=== PATIENT | male | born 1985 | race Caucasian/White ===

== ENCOUNTER 2016-12-11 14:48 | Inpatient (IN) | payer BC ==
--- NOTE | ~2016-12-11 | CN ---
Consultation Report [facility] [address] [place]. [address] NAME: ARELIS MACK : 83 STATUS : ADM IN PAT#: [id number] AGE: 31 ADM/REG DATE : 12/11/16 MR#: [id number] REPORT SERV DATE: 12/13/16 DICTATED BY: DATE: REPORT STATUS : Draft TRANSCRIBED BY: MODNas DATE: 12/13/16 CONSULTATION DATE OF CONSULTATION: 12/12/2016 REASON FOR CONSULTATION: Diabetes management. HISTORY OF PRESENT ILLNESS: The patient was admitted under the care of Dr. Haynes for acute STEMI anterior W[place]. The patient has uncontrolled diabetes with blood sugars in 200s to 300s. He takes oral agents at home including metformin and Glyxambi. Now, the patient reports he does not check his blood sugar on a regular basis and he reports a poor diet at this time including fast food. He also reports having peripheral neuropathy for which he takes gabapentin at home. This time, he denies symptoms of hyperglycemia including increased thirst, polyuria, and polydipsia. PAST MEDICAL HISTORY: Includes hypertension, diabetes mellitus type 2, kidney stones, gastroesophageal reflux disease, and peripheral neuropathy. PAST SURGICAL HISTORY: Includes lithotripsy. SOCIAL HISTORY: The patient reports prior tobacco use. He quit one year ago. He smoked half a pack per day for one year. Denies EtOH use. Denies illicit drug use. 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 He is with four children. FAMILY HISTORY: His mother had an W[place] in her 50s. Father had pacemaker, although he does not know the reason why. He thinks it may be some type of "arrhythmia." The patient does not have any siblings. ALLERGIES: INCLUDE PENICILLIN AND CLARITIN. MEDICATIONS: Include aspirin 81 mg p.o. daily, Lipitor 40 mg p.o. daily, Coreg 6.25 mg p.o. b.i.d., gabapentin 300 mg p.o. b.i.d., losartan 100 mg p.o. daily, Protonix 40 mg p.o. daily, insulin sliding scale level 2, Levemir 10 units subcu daily, and Brilinta 90 mg p.o. b.i.d. REVIEW OF SYSTEMS: A 10-point review of systems was performed. All pertinent positives mentioned above, otherwise negative. PHYSICAL EXAMINATION: VITAL SIGNS: Temperature 98.5, pulse 99, respiratory rate 18, O2 saturation 96% on room air, and blood pressure 112/71. GENERAL: The patient is a well-appearing, well-nourished with appropriate affect. NEUROLOGIC: Alert and oriented x4. He follows commands. Cranial nerves 2 through 12 Consultation Report [facility] [id number] [place]. [address] NAME: ARELIS MACK : 83 STATUS : ADM IN PAT#: [id number] AGE: 31 ADM/REG DATE : 12/11/16 MR#: [id number] REPORT SERV DATE: 12/13/16 DICTATED BY: DATE: REPORT STATUS : Draft TRANSCRIBED BY: MODL DATE: 12/13/16 grossly intact. CARDIOVASCULAR: S1 and S2 present. No murmurs, rubs, or gallops noted. PMI was nondisplaced. Regular rhythm. PULMONARY: Lungs are clear throughout lung gould. The patient has normal respiratory effort. ABDOMEN: Soft, nontender. Active bowel sounds. No reports of diarrhea or constipation. No organomegaly noted. EXTREMITIES: Edema is absent. Distal pulses are present. HOSPITAL COURSE/PROBLEM LIST: 1. Diabetes mellitus type 2, uncontrolled. Blood sugars have ranged from 216 to 330. Check hemoglobin A1c. Add Levemir to his regimen as well as increase sliding scale from level 1 to level 2. Consult chemical educator for diet recommendations as well as regularly monitoring blood sugars and possibly insulin administration if the patient requires this after discharge. 2. Acute myocardial infarction, anterior. This is managed by the primary team of Dr. John Haynes. 3. Hypertension. 4. Hyperlipidemia. Also managed by the primary team of Dr. John Haynes. As mentioned above, the plan is to control the patient's blood sugars. We will place him on insulin while here in the hospital. Check his A1c. If markedly elevated, we will continue his insulin regimen post discharge with close followup with primary care provider. Thank you for the consult, and we will follow along. TRICIA/FRANTZ Micheal Sheffield NP / [id number] CC: John Haynes M.D. NO PCP
--- NOTE | ~2016-12-11 | PRECARD ---
[facility]&P [facility] [address] [place]. [address] NAME: ARELIS MACK : 83 STATUS : ADM IN [facility]#: [id number] AGE: 31 ADM/REG DATE : 12/11/16 MR#: [id number] REPORT SERV DATE: 12/11/16 DICTATED BY: DAR HAYNES DATE: 12/11/16 REPORT STATUS : Draft TRANSCRIBED BY: FRANTZ DATE: 12/11/16 DATE OF ADMISSION: 12/11/2016 Mr. Arelis Mack is a 31-year-old gentleman, transferred from the [facility] Emergency Room with a diagnosis of acute anterior wall myocardial infarction. Mr. Mack has no known cardiovascular disease. He has had intermittent chest pain for about two weeks. This discomfort has become much more frequent over the last 24 hours. He has stuttering pain intermittently for the last 24 hours, he describes 6/10 severity, radiating to both arms with some mild diaphoresis. He reported to [facility] ER, the initial EKG was unremarkable. Subsequent EKG, which was not sent with the patient, reportedly demonstrated ST-segment elevation. He arrived to [facility] via ambulance with no discomfort. He does have a history of diabetes, he quit smoking about a year ago. PAST MEDICAL HISTORY: 1. Diabetes. 2. Prior tobacco use. 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 FAMILY HISTORY: Premature coronary disease. MEDICATIONS: Include metformin and atenolol and losartan, dose is uncertain. REVIEW OF SYSTEMS: A complete review of systems obtained and negative and unremarkable except as noted above and below. All systems addressed. PHYSICAL EXAMINATION: VITAL SIGNS: Blood pressure 130/80, heart rate 100, and temperature 98.5. EKG sinus rhythm with anterior T-wave inversion. Troponin 0.37 at [facility]. Other laboratories are pending. ASSESSMENT: Mr. Mack is a very nice 31-year-old gentleman with classic angina, progressive, unstable with reported ST elevation, that EKG is not available. The troponin was elevated at 0.37. PLAN: We will plan to proceed with cardiac catheterization and possible angioplasty. I have discussed the risks, benefits, and alternatives with Mr. Mack. He understands and agrees to proceed. [facility] [address] [place] [address] NAME: ARELIS MACK : 83 STATUS : ADM IN PAT#: [id number] AGE: 31 ADM/REG DATE : 12/11/16 MR#: [id number] REPORT SERV DATE: 12/11/16 DICTATED BY: DAR HAYNES DATE: 12/11/16 REPORT STATUS : Draft TRANSCRIBED BY: FRANTZ DATE: 12/11/16 KYLAH/FRANTZ Dar Haynes M.D. / [id number] CC: Dar Haynes M.D.
--- NOTE | ~2016-12-11 | DS ---
Discharge Summary [facility] [address] [place]. [address] NAME: ARELIS MACK : 83 STATUS : DIS IN PAT#: [id number] AGE: 31 ADM/REG DATE : 12/11/16 MR#: [id number] REPORT SERV DATE: 12/28/16 DICTATED BY: DAR HAYNES DATE: 12/27/16 REPORT STATUS : Draft TRANSCRIBED BY: FRANTZ DATE: 12/27/16 Data Collection from hospitalization DISCHARGE DIAGNOSES: 1. Myocardial infarction - acute anterior wall. 2. Diabetes mellitus. 3. Hypertension. 4. Hyperlipidemia. 5. Former smoker. 6. Peripheral neuropathy. 7. Gastroesophageal reflux disease. CONSULTATIONS: Micheal Sheffield NP. PROCEDURES PERFORMED: Cardiac catheterization and percutaneous coronary intervention, 12/11/2016. MEDICATIONS: Aspirin 81 mg daily, Lipitor 40 mg at bedtime, Coreg 6.25 mg twice a day, Neurontin 300 mg twice a day, NovoLog FlexPen as instructed, Lantus 20 units subcutaneously at bedtime, Cozaar 100 mg daily, Mag-Ox 400 mg daily as needed, Fortamet 500 mg twice a day, NitroQuick 0.4 mg sublingually as needed, Prilosec 40 mg daily, Brilinta 90 mg twice a day. He was instructed not to continue atenolol or Glyxambi. CONDITION AT DISCHARGE: Stable. DISPOSITION: The patient was discharged home on an 1800-calorie cardiac/diabetic diet with activities as instructed. He would follow up with nv 01/16/2017. He would follow up with Dr. Srinivasa Lowry as instructed. HOSPITAL COURSE: This is a 31-year-old man who was transferred from [facility] Emergency Room with a diagnosis of acute anterior wall myocardial infarction. The patient has no known cardiovascular disease. He has had intermittent chest pain for about two weeks. This discomfort had become much more frequent over the last 24 hours. He had stuttering pain intermittently over the last 24 hours that he described as 6/10 in severity, radiating to both arms with some mild diaphoresis. He reported to [facility] emergency room and initial EKG was unremarkable. Subsequent EKG reportedly demonstrated ST-segment elevation. He arrived to [facility] via ambulance with no discomfort. He has a history of diabetes. He stopped smoking about a year ago. It was felt that he would need to undergo cardiac catheterization and possible angioplasty. He was admitted to the hospital at this time for further evaluation and treatment. Upon admission, he was taken to the cardiac pathology laboratory aides teacher where he underwent the above-mentioned procedure. He tolerated this well. There were no complications. The following day, he had no chest pain or shortness of breath. He said he felt well. He was in a sinus rhythm. His lungs were clear. He was seen in consultation by Micheal Sheffield regarding diabetes management. The patient has uncontrolled diabetes with blood sugars in the 200s to 300s. He takes oral agents at home including metformin and Glyxambi. The patient reports that he does not check his blood sugar on a regular basis, and he reports a poor diet at this time Discharge Summary [address] [address] NAME: ARELIS MACK : 83 STATUS : DIS IN PAT#: [id number] AGE: 31 ADM/REG DATE : 12/11/16 MR#: [id number] REPORT SERV DATE: 12/28/16 DICTATED BY: DAR HAYNES DATE: 12/27/16 REPORT STATUS : Draft TRANSCRIBED BY: FRANTZ DATE: 12/27/16 including fast food. He reports having peripheral neuropathy for which he takes gabapentin. The patient denied any symptoms at this time of hyperglycemia including increased thirst, polyuria, and polydipsia. Hemoglobin A1c was going to be checked. Levemir was added to his regimen. Sliding scale insulin was increased to level 2. It was felt that he would need to undergo diabetes education. On the , he had no chest pain or shortness of breath. He said he felt great. Blood glucose levels were in the 200s. Level 2 sliding scale insulin continued as well as Levemir. He underwent diabetes education. Discharge planning was performed. On 12/14/2016, he had no chest pain. He was alert and cooperative. He was going to go home on Lantus/level 2 sliding scale. Discharge instructions were given. Due to his improved and stable condition, he was discharged home with the above-stated instructions. Information collected by: Melody Mae I submit the above information as my discharge summary. LUCIA/FRANTZ Dar Haynes M.D. / [id number] CC: Dar Haynes M.D.
[2016-12-11 18:00] LABS: BUN (BLOOD UREA NITROGEN) 15 MG/DL (6-23); CHLORIDE, SERUM 103 MMOL/L (96-112); CO2 (CARBON DIOXIDE) 25 MMOL/L (24-34); CPK 85 U/L (0-200); CREATININE 0.79 MG/DL (0.70-1.30); GFR AFRICAN AMERICAN 138 ML/MIN (>=60); GFR NON AFRICAN AMERICAN 119 ML/MIN (>=60); POTASSIUM, SERUM 4.1 MMOL/L (3.5-5.3); SODIUM, SERUM 135 MMOL/L (135-148)
[2016-12-11 18:02] LABS: CALCIUM, SERUM 8.2 MG/DL (8.5-10.4); CK-MB 4.9 NG/ML; GLUCOSE, SERUM 330 MG/DL (60-99)
[2016-12-11 18:03] LABS: TROPONIN I 2.19 NG/ML (<0.05)
[2016-12-11] MEDS ORDERED: GLYXAMBI 25 MG1 EACH PO (18:06)
[2016-12-11] MEDS ORDERED: COZAAR100 MG PO (18:06)
[2016-12-11] MEDS ORDERED: PRILOSEC40 MG PO (18:07)
[2016-12-11] MEDS ORDERED: FORTAMET500 MG PO (18:07)
[2016-12-11] MEDS ORDERED: MAGOX4 PO (18:08)
[2016-12-11] MEDS ORDERED: NEUR300 PO (18:09)
[2016-12-11] MEDS ORDERED: ATEN50 PO (18:09)
[2016-12-11] MEDS ORDERED: ASAB PO (18:09)
[2016-12-12 07:22] LABS: BASOPHILS 0.3 %; BASOPHILS ABSOLUTE 0.03 10/3/uL (0.0-0.16); EOSINOPHILS ABSOLUTE 0.27 10/3/uL (0.0-0.53); HEMOGLOBIN 15.1 g/dL (13.6-17.8); IMMATURE GRANULOCYTES 0.3 %; IMMATURE GRANULOCYTES ABSOLUTE 0.03 10/3/uL (0.0-0.11); LYMPHOCYTES 30.2 %; LYMPHOCYTES ABSOLUTE 2.73 10/3/uL (0.67-4.30); MANUAL DIFF NO %; MEAN CORPUS HGB CONC 34.3 g/dL (32.0-36.0); MEAN CORPUSCULAR HEMOGLOB 28.4 pg (26.0-34.0); MEAN CORPUSCULAR VOLUME 82.9 fL (80-100); MEAN PLATELET VOLUME 10.6 fL (9.2-13.0); MONOCYTES 9.4 %; MONOCYTES ABSOLUTE 0.85 10/3/uL (0.21-1.20); NEUTROPHILS 56.8 %; NEUTROPHILS ABSOLUTE 5.13 10/3/uL (2.02-8.40); PLATELET COUNT 190 10/3/uL (150-400); RBC DISTRIBUTION WIDTH 13.7 % (12.0-16.0); RED CELL COUNT 5.31 10/6/uL (4.7-6.1)
[2016-12-12 07:44] LABS: BUN (BLOOD UREA NITROGEN) 14 MG/DL (6-23); CALCIUM, SERUM 8.2 MG/DL (8.5-10.4); CHLORIDE, SERUM 104 MMOL/L (96-112); CHOLESTEROL 215 MG/DL (< 200); CO2 (CARBON DIOXIDE) 24 MMOL/L (24-34); CREATININE 0.57 MG/DL (0.70-1.30); GFR AFRICAN AMERICAN 157 ML/MIN (>=60); GFR NON AFRICAN AMERICAN 136 ML/MIN (>=60); HDL CHOLESTEROL 14 MG/DL (> 39); NON-HDL CHOLESTEROL 201 MG/DL (< 160); SODIUM, SERUM 137 MMOL/L (135-148); TRIGLYCERIDE 1004 MG/DL (< 150)
[2016-12-12 07:45] LABS: CHOL/HDL RATIO(NOT ORDER) 15.4 (0-5); GLUCOSE, SERUM 251 MG/DL (60-99)
[2016-12-12 11:21] LABS: CK-MB 2.8 NG/ML; CPK 60 U/L (0-200)
[2016-12-12 19:38] LABS: CK-MB 1.6 NG/ML
[2016-12-12 19:39] LABS: CPK 64 U/L (0-200)
[2016-12-13 04:11] LABS: CREATININE 0.86 MG/DL (0.70-1.30); GFR AFRICAN AMERICAN 133 ML/MIN (>=60); GFR NON AFRICAN AMERICAN 115 ML/MIN (>=60)
[2016-12-13 04:16] LABS: CK-MB 1.2 NG/ML; CPK 41 U/L (0-200)
[2016-12-14] MEDS ORDERED: BRILINTA90 MG PO (08:18)
[2016-12-14] MEDS ORDERED: LIPITOR40 PO (08:18)
[2016-12-14] MEDS ORDERED: COREG6 PO (08:19)
[2016-12-14] MEDS ORDERED: NITROQUICK0.4 MG SL (08:21)
[2016-12-14] MEDS ORDERED: LANTUSCART SC (10:11)
[2016-12-14] MEDS ORDERED: NOVOPEN SC (10:12)
== END 2016-12-14 11:16 | disposition home or self-care (01) | DRG 247 ==
LOC: SSU2 14:48 → CCU 16:28 → 5NO 12-12 16:15
PROVIDERS: Internal Medicine Cardiovascular Disease
PROC: 027035Z Dilation of Coronary Artery, One Artery with Two Drug-eluting Intraluminal Devices, Percutaneous Approach (ICD-10-PCS; principal; 2016-12-11)
PROC: 4A023N7 Measurement of Cardiac Sampling and Pressure, Left Heart, Percutaneous Approach (ICD-10-PCS; 2016-12-11)
PROC: B2151ZZ Fluoroscopy of Left Heart using Low Osmolar Contrast (ICD-10-PCS; 2016-12-11)
PROC: B2111ZZ Fluoroscopy of Multiple Coronary Arteries using Low Osmolar Contrast (ICD-10-PCS; 2016-12-11)
DX: I21.09 ST elevation (STEMI) myocardial infarction involving other coronary artery of anterior wall (principal); I10 Essential (primary) hypertension; E11.9 Type 2 diabetes mellitus without complications; I25.10 Atherosclerotic heart disease of native coronary artery without angina pectoris; Z87.891 Personal history of nicotine dependence; Z82.49 Family history of ischemic heart disease and other diseases of the circulatory system; Z88.0 Allergy status to penicillin; E78.5 Hyperlipidemia, unspecified; Z79.84 Long term (current) use of oral hypoglycemic drugs
CPT/HCPCS: 71010; 80048; 80061; 82550; 82553; 82565; 82962; 83036; 84484; 85025; 85347; 87641; 93005; 93458; 99152; 99153; A9270-GY; C1725; C1760; C1769; C1874; C1887; C1894; C9606; J0583; J2250; J3010; Q9967